=== PATIENT | female | born 1980 | race Caucasian/White ===

== ENCOUNTER 2016-07-06 10:35 | Emergency (ER) | payer OTHER ==
[2016-07-06 11:23] VITALS: BP 119/58
--- NOTE | 2016-07-06 11:49 | UC ---
[facility] Dental HPI - HPI Summary HPI Summary: complaint of chipping molar lower left jaw 2 daysa go has been painful woke up this pain and swelling in left jaw called dentist and told to seek medical care denies fever taking aleve for pain that has been minimally effective 4 weeks ago treatment for similiar infection left lower jaw - History of Current Complaint Chief Complaint: UCGeneralIllness Stated Complaint: TOOTH PAIN Time Seen by Provider: 07/06/16 11:43 Hx Obtained From: Patient Hx Last Menstrual Period: HAS NOT HAD FOR A YEAR Aggravating: Cold, Chewing Alleviating: OTC Meds - Allergies/Home Medications Allergies/Adverse Reactions: Allergies Allergy/AdvReac Type Severity Reaction Status Date / Time Sulfa Antibiotics Allergy Unknown Unknown Verified 04/18/16 19:05 Reaction Details Home Medications: Home Medications Naproxen Sodium-Diphenhydramin [Aleve Pm 220-25 mg] 1 tab PO 07/06/16 [History] PMH/Surg Hx/FS Hx/Imm Hx Previously Healthy: Yes Endocrine History Of: Denies: Diabetes, Thyroid Disease Cardiovascular History Of: Denies: Cardiac Disorders, Hypertension Respiratory History Of: Denies: COPD, Asthma GI/ History Of: Denies: Ulcer - Surgical History Surgical History: None Surgery Procedure, Year, and Place: LEEP - Family History Known Family History: Positive: Hypertension Negative: Cardiac Disease, Diabetes - Social History Occupation: Employed Full-time Lives: With Family Alcohol Use: Occasionally Substance Use Type: None Smoking Status (MU): Light Every Day Tobacco Smoker Type: Cigarettes Amount Used/How Often: 1/2 PPD Length of Time of Smoking/Using Tobacco: 15 YEARS Have You Smoked in the Last Year: Yes - Immunization History Most Recent Influenza Vaccination: none Review of Systems Constitutional: Negative Skin: Negative Eyes: Negative ENT: Dental Pain Respiratory: Negative Cardiovascular: Negative Gastrointestinal: Negative Genitourinary: Negative Motor: Negative Neurovascular: Negative Musculoskeletal: Negative Neurological: Negative Psychological: Negative All Other Systems Reviewed And Are Negative: Yes Physical Exam Triage Information Reviewed: Yes Appearance: No Pain Distress, Well-Nourished Vital Signs: Initial Vital Signs Temp 98.1 F 07/06/16 11:16 Pulse 72 07/06/16 11:16 Resp 16 07/06/16 11:16 BP 119/58 07/06/16 11:16 Pulse Ox 100 07/06/16 11:16 Vital Signs Reviewed: Yes Eyes: Positive: Conjunctiva Clear ENT: Positive: Pharynx normal, TMs normal. Negative: Nasal congestion Dental: Positive: Abscess @ - tooth 19 Neck: Positive: No Lymphadenopathy Respiratory: Positive: Lungs clear, Normal breath sounds, No respiratory distress Cardiovascular: Positive: RRR, No Murmur, Pulses Normal Abdomen Description: Positive: Nontender, Soft Bowel Sounds: Positive: Present Musculoskeletal: Positive: No Edema Neurological: Positive: Alert Psychological Exam: Normal Skin Exam: Normal Dental Complaint Course/Dx - Course Course Of Treatment: exam completed. will treat with augmentin d/t recent ttreatment for dental infection with PCN. followup with dentist - Differential Dx/Diagnosis Differential Diagnosis/Dx: Dental Abscess, Fractured Tooth Provider Diagnoses: dental abscess tooth 19 Discharge - Discharge Plan Condition: Stable Disposition: HOME Prescriptions: Amoxicillin/Clavulanate TAB* [Augmentin TAB 875*] 875 mg PO BID #20 tab Patient Education Materials: Dental Abscess (ED) Referrals: Mark Beard MD [Primary Care Provider] - Additional Instructions: Please take antibiotic as directed. call dentist for further evaluation and treatment Increase fluids and rest Take acetaminophen or ibuprofen for fever or pain Please review your discharge instructions. If your symptoms do not improve please call your primary care provider or return to urgent care. DENTAL ABSCESS What is a Dental Abscess? A dental abscess is an infection around the root of a tooth or in the gums or jawbone. The infection causes pus to collect, and a lump can appear. Dental abscesses often get their start when bacteria invade a decayed tooth; the decay may then travel to the gums or jawbone. Decay can also begin in the mouth when teeth are not brushed or flossed properly. Symptoms Might Include: In general, you'll start to have a fever, redness and swelling of the gums or cheek. If you have a lump it may feel hot. Other signs include tooth or mouth pain, a loose tooth, or not being able to close your mouth all the way. If the abscess spreads, your face, neck, or chest may swell. Treatment Recommendations: Rinse your mouth with warm water every hour or as needed to ease the pain. This will help draw the infection from the abscess. For pain, you may take non-prescription medicines such as acetaminophen ( Tylenol) or ibuprofen (Motrin, Advil). To help ease the pain, do not chew on the sore side for at least 2 days; you may need to limit yourself to a liquid diet. Putting ice on your face over the affected area may also relieve the pain. Apply the ice for 10 to 20 minutes out of every hour. Do not leave the ice on for long periods or you can get frostbite. If the abscess is drained, there may be a small hole or drain. Keep the area free of food by rinsing with water after eating. You'll need to return or be seen by a dentist to have the drain removed. The healthcare provider may have prescribed an antibiotic medicine. The medicine should be taken until it is completely gone, even if you are feeling better. If you stop taking the medicine early, the infection may not be completely gone, and the medication may not work the next time. To prevent abscesses: Husser regularly with a toothbrush recommended by your dentist. Floss daily and use a fluoride mouthwash, toothpaste, tablets, or supplements as instructed by your dentist or dental hygienist. Reduce the amount of sugar in your diet. Call Your Doctor or Return Here IF: You have a high temperature Your pain becomes worse You have any new symptoms or problems that may be due to the medicine you are taking You have new or increased swelling in your face, jaw, cheek, eye, or neck You have any other new symptoms that worry you
== END 2016-07-06 12:10 | disposition home or self-care (01) ==
LOC: UCEAST 10:35
DX: K04.7 Periapical abscess without sinus (principal); Z88.2 Allergy status to sulfonamides
CPT/HCPCS: 99212; G0463

== ENCOUNTER 2017-02-05 13:04 | Emergency (ER) | payer SELFPAY ==
[2017-02-05 13:15] VITALS: BP 145/62
--- NOTE | 2017-02-05 13:39 | UC ---
Throat Pain/Nasal Matt HPI - HPI Summary HPI Summary: 37 y/o female presents to the urgent care s/o of sore throat for the past week. Pt states difficulty swallowing, pain is 2/10 associated with nasal congestion and yellowish discharge at the beginning of symptoms. Which has now resolved. Pt denies fever,cough, SOB, chest pain, N/V/D. Pt has not other complains. - History of Current Complaint Chief Complaint: UCRespiratory Stated Complaint: SORE THROAT Time Seen by Provider: 02/05/17 13:33 Hx Obtained From: Patient Hx Last Menstrual Period: does not get unknown reason ?: No Onset/Duration: Gradual Onset, Lasting Days, Still Present Severity: Mild Pain Intensity: 2 Pain Scale Used: 0-10 Numeric Associated Signs & Symptoms: Positive: Dysphagia - Epiglottits Risk Factors Epiglottis Risk Factors: Negative - Allergies/Home Medications Allergies/Adverse Reactions: Allergies Allergy/AdvReac Type Severity Reaction Status Date / Time Sulfa Antibiotics Allergy Unknown Unknown Verified 02/05/17 13:15 Reaction Details Home Medications: Home Medications ALPRAZolam TAB* [Xanax TAB*] 0.25 mg PO Q6H PRN 02/05/17 [History Confirmed 12/17] Sertraline* [Zoloft*] 100 mg PO DAILY 02/05/17 [History Confirmed 02/05/17] PMH/Surg Hx/FS Hx/Imm Hx Previously Healthy: Yes - Surgical History Surgical History: None Surgery Procedure, Year, and Place: [facility] - Family History Known Family History: Positive: Hypertension Negative: Cardiac Disease, Diabetes - Social History Occupation: Employed Full-time Lives: With Family Alcohol Use: Occasionally Substance Use Type: None Smoking Status (MU): Light Every Day Tobacco Smoker Type: Cigarettes Amount Used/How Often: 1/2 PPD Length of Time of Smoking/Using Tobacco: 15 YEARS Have You Smoked in the Last Year: Yes - Immunization History Most Recent Influenza Vaccination: none Review of Systems Constitutional: Negative Skin: Negative Eyes: Negative ENT: Sore Throat Respiratory: Negative Cardiovascular: Negative Gastrointestinal: Negative Genitourinary: Negative Motor: Negative Neurovascular: Negative Musculoskeletal: Negative Neurological: Negative Psychological: Negative All Other Systems Reviewed And Are Negative: Yes Physical Exam Triage Information Reviewed: Yes Appearance: Well-Appearing, No Pain Distress, Well-Nourished Vital Signs: Initial Vital Signs Temp 97.6 F 02/05/17 13:12 Pulse 75 02/05/17 13:12 Resp 16 02/05/17 13:12 BP 145/62 02/05/17 13:12 Vital Signs Reviewed: Yes Eye Exam: Normal Eyes: Positive: Conjunctiva Clear - PERRLA, EOMI, fundi grossly normal ENT Exam: Normal ENT: Positive: Normal ENT inspection, Hearing grossly normal, Pharyngeal erythema - mild exudate, TMs normal, Tonsillar swelling, Tonsillar exudate - B/ L exudate Dental Exam: Normal Neck exam: Normal Neck: Positive: Supple, Nontender, No Lymphadenopathy Respiratory Exam: Normal Respiratory: Positive: Chest non-tender, Lungs clear, Normal breath sounds Cardiovascular Exam: Normal Cardiovascular: Positive: RRR, No Murmur, Pulses Normal Abdominal Exam: Normal Abdomen Description: Positive: Nontender, No Organomegaly, Soft. Negative: CVA Tenderness (R), CVA Tenderness (L) Bowel Sounds: Positive: Present Musculoskeletal Exam: Normal Musculoskeletal: Positive: Strength Intact, ROM Intact, No Edema Neurological Exam: Normal Psychological Exam: Normal Skin Exam: Normal Throat Pain/Nasal Course/Dx - Course Course Of Treatment: 37 y/o female presents to the urgent care s/o of sore throat for the past week. Pt states difficulty swallowing, pain is 2/10 associated with nasal congestion and yellowish discharge at the beginning of symptoms. Which has now resolved. Pt denies fever,cough, SOB, chest pain, N/V /D. Hx obtained. PE abnormal findings:ENT: Positive: Normal ENT inspection, Hearing grossly normal, Pharyngeal erythema - mild exudate, TMs normal, Tonsillar swelling, Tonsillar exudate - B/L exudate. Rapid strep ordered, result: negative. Viral pharyngitis. Pt Rx ibuprofen PO to alleviate symptoms of pain and swelling. Advised to avoid strenuous exercise, increase fluid intake, rest. PT's BP is elevated today advised to decrease salt intake, monitor BP if it continuous elevated to f/u with her PCP for further management. Pt understood and agreed. - Differential Dx/Diagnosis Differential Diagnosis/HQI/PQRI: Laryngitis, Mononucleosis, Otitis Media, Peritonsillar Abscess, Pharyngitis, Tonsillitis Provider Diagnoses: 1-Viral pharyngitis. 2-Elevated BP w/o Hx of HTN Discharge - Discharge Plan Condition: Stable Disposition: HOME Prescriptions: Ibuprofen TAB* [Motrin TAB* 800 MG] 800 mg PO Q6H #20 tab Patient Education Materials: Pharyngitis (ED), Low Sodium Diet (ED) Referrals: Mark Beard MD [Primary Care Provider] - If Needed Additional Instructions: 1-Please take ibuprofen as instructed after meals to alleviate pain and swelling. If symptoms do not improve or worsen please return to the urgent care or f/u with your PCP for further evaluation and treatment. 2- Your BP today is mildly elevated please decrease salt in your diet and monitor your BP if it continues to be elevated please f/u with PCP for further management.
== END 2017-02-05 14:00 | disposition home or self-care (01) ==
LOC: UCEAST 13:04
DX: J02.8 Acute pharyngitis due to other specified organisms (principal); R03.0 Elevated blood-pressure reading, without diagnosis of hypertension; Z72.0 Tobacco use
CPT/HCPCS: 87651; 99212; G0463

== ENCOUNTER 2017-02-21 15:10 | Emergency (ER) | payer OTHER ==
[2017-02-21 17:25] VITALS: BP 120/72
--- NOTE | 2017-02-21 17:25 | UC ---
Dental HPI - HPI Summary HPI Summary: Patient arrives to ED with CC of pain over left lower canine tooth radiating to the ear with swelling. Pain and inflammation began last night and she awoke this morning with a mild to moderate amount of swelling in the cheek. Denies trismus, drooling or dysphagia. Pain is 4/10, aching and throbbing. Denies airway compromise or SOB. Denies ear pain, eye pain, blurry vision or double vision. Otherwise healthy. Pain is worse with chewing and cold drinks, better with ibuprofen, but only improves slightly. Patient denies dental care for several years but is going to see a dentist this week. Denies fevers, sweats or chills. - History of Current Complaint Chief Complaint: UCDentalProblem Stated Complaint: TOOTH PAIN Time Seen by Provider: 02/21/17 16:53 Hx Obtained From: Patient Hx Last Menstrual Period: >1 yr ?: No Onset/Duration: Sudden Onset Severity: Moderate Pain Intensity: 4 Pain Scale Used: 0-10 Numeric Aggravating: Chewing Alleviating: OTC Meds Related History: Previous Dental Care on Same Tooth, Swelling - Allergies/Home Medications Allergies/Adverse Reactions: Allergies Allergy/AdvReac Type Severity Reaction Status Date / Time Sulfa Antibiotics Allergy Unknown Unknown Verified 02/21/17 15:54 Reaction Details PMH/Surg Hx/FS Hx/Imm Hx Previously Healthy: Yes - Surgical History Surgical History: None Surgery Procedure, Year, and Place: [facility] - Family History Known Family History: Positive: Hypertension Negative: Cardiac Disease, Diabetes - Social History Occupation: Unemployed Lives: With Family Alcohol Use: Occasionally Substance Use Type: None Smoking Status (MU): Light Every Day Tobacco Smoker Type: Cigarettes Amount Used/How Often: 1/2 PPD Length of Time of Smoking/Using Tobacco: 15 YEARS Have You Smoked in the Last Year: Yes - Immunization History Most Recent Influenza Vaccination: none Review of Systems Constitutional: Negative Skin: Negative ENT: Dental Pain Respiratory: Negative Cardiovascular: Negative Neurovascular: Negative Musculoskeletal: Negative Neurological: Negative Psychological: Negative All Other Systems Reviewed And Are Negative: Yes Physical Exam Triage Information Reviewed: Yes Appearance: Well-Appearing, Well-Nourished Vital Signs: Initial Vital Signs Temp 96.8 F 02/21/17 15:51 Pulse 82 02/21/17 15:51 Resp 16 02/21/17 15:51 BP 98/61 02/21/17 15:51 Pulse Ox 98 02/21/17 15:51 Vital Signs Reviewed: Yes Eye Exam: Normal Eyes: Positive: Conjunctiva Clear ENT: Positive: Pharynx normal Dental Exam: Other Dental: Positive: Percussion Tenderness @, Gross Decay/Caries @, Dental Fracture @ Dental Complaint Course/Dx - Course Course Of Treatment: Small dental abscess seen over area of concern. Erythema at site of pain. No drainage from area. Several dental caries, cavities, crowding and broken teeth throughout. Pain on palpation over mandible. No TMJ tenderness. No pain with opening and closing mouth. Poor dental hygiene and outpatient dental care. Will treat for possible dental infection/abscess based on symptoms of pain and radiation to jaw and ear. No allergies. Patient to follow up immediately with dentist. Will treat with Penicillin four times daily for 7 days. Care instructions given. - Differential Dx/Diagnosis Differential Diagnosis/Dx: Dental Abscess, Dental Caries, Fractured Tooth Provider Diagnoses: Dental Abscess Discharge - Discharge Plan Condition: Stable Disposition: HOME Prescriptions: Penicillin VK 500 MG TAB(NF) [Penicillin VK 500 mg Tab(NF)] 500 mg PO QID #28 tab MDD 4 Patient Education Materials: Dental Abscess (ED) Referrals: Mark Beard MD [Primary Care Provider] - Additional Instructions: You have been diagnosed with dental pain with possible infection: Antibiotics as prescribed to you. Penicillin four times daily for 7 days. To minimize the potential for gastrointestinal intolerance, Penicillin should be taken at the start of a meal. If you have any questions about your medication, please contact us or ask your pharmacist. Salt water rinses several times per day will improve healing time. Warm compresses over the area several times per day. Ibuprofen 600mg three times daily with meals for discomfort. May use over the counter ambesol or orajel over the area for comfort. Follow up with a dentist for routine care to prevent recurrence of infections. If fever, worsening pain or swelling develops, see your PCP, dentist or come back to the Urgent Care. Images Dental: 1 - small abscess seen over area of concern with swelling of the cheek
== END 2017-02-21 17:20 | disposition home or self-care (01) ==
LOC: UCEAST 15:10
DX: K04.7 Periapical abscess without sinus (principal); Z88.2 Allergy status to sulfonamides; F17.210 Nicotine dependence, cigarettes, uncomplicated
CPT/HCPCS: 99212; G0463